=== PATIENT | female | born 1985 | race Caucasian/White ===

== ENCOUNTER 2018-02-26 15:29 | Inpatient (IN) | payer OTHER ==
[~2018-02-26] VITALS: Ht 157.5 cm; Wt 73.9 kg
[2018-03-03] MEDS ORDERED: OXYC1TAB9 PO (12:00)
[2018-03-03] MEDS ORDERED: COLACE100 MG PO (12:00)
== END 2018-03-03 12:40 | disposition home or self-care (01) | DRG 743 ==
LOC: O/R 03-01 05:50 → SURH 03-01 07:00 → OB/GYN 03-01 10:29 → SURH 03-01 15:29 → OB/GYN 03-03 12:40
PROVIDERS: Obstetrics & Gynecology
PROC: 0UB90ZZ Excision of Uterus, Open Approach (ICD-10-PCS; principal; 2018-03-01 07:00)
DX: D25.2 Subserosal leiomyoma of uterus (principal)

== ENCOUNTER 2021-09-19 07:14 | Emergency (ER) | payer OTHER ==
[~2021-09-19] VITALS: Ht 157.5 cm; Wt 68.9 kg
[~2021-09-19 07:14] MED LIST: COLACE100 MG PO; OXYC1TAB9 PO
[2021-09-19] MEDS ORDERED: FOLIC ACID0.8 M1 PO (07:21)
[2021-09-19] MEDS ORDERED: PRENATAL + DHA1 EAC1 PO (07:21)
== END 2021-09-19 12:30 | disposition home or self-care (01) ==
LOC: ER 07:14
DX: O26.892 Other specified pregnancy related conditions, second trimester (principal); Z3A.15 15 weeks gestation of pregnancy; R10.2 Pelvic and perineal pain

== ENCOUNTER 2021-10-27 07:57 | Outpatient (CLI) | payer OTHER ==
[~2021-10-27 07:57] MED LIST changes: +FOLIC ACID0.8 M1 PO; +PRENATAL + DHA1 EAC1 PO
== END 2021-10-27 09:09 | disposition home or self-care (01) ==
LOC: PRENATAL 07:57
PROVIDERS: ATTEND Obstetrics & Gynecology Maternal & Fetal Medicine
DX: O35.0XX0 Maternal care for (suspected) central nervous system malformation in fetus, not applicable or unspecified (principal); O35.3XX0 Maternal care for (suspected) damage to fetus from viral disease in mother, not applicable or unspecified; O28.1 Abnormal biochemical finding on antenatal screening of mother; O99.340 Other mental disorders complicating pregnancy, unspecified trimester; O34.219 Maternal care for unspecified type scar from previous cesarean delivery

== ENCOUNTER 2022-02-21 08:59 | Inpatient (IN) | payer OTHER ==
[~2022-02-21] VITALS: Ht 157.5 cm; Wt 85.3 kg
[2022-02-21] MEDS ORDERED: SERTRALINE HCL25 MG (14:39)
[2022-02-24] MEDS ORDERED: AMOX1TAB5 PO (08:22)
[2022-02-24] MEDS ORDERED: PERCOCET 5-3251 EACH PO (08:22)
== END 2022-02-24 14:46 | disposition home or self-care (01) | DRG 787 ==
LOC: LDR 08:59 → SURG-SUITE 13:48
PROVIDERS: Surgery; ADMIT Specialist; ATTEND Specialist
PROC: 0DNW0ZZ Release Peritoneum, Open Approach (ICD-10-PCS; 2022-02-21)
PROC: 0DQE0ZZ Repair Large Intestine, Open Approach (ICD-10-PCS; 2022-02-21)
PROC: 4A1HXCZ Monitoring of Products of Conception, Cardiac Rate, External Approach (ICD-10-PCS; 2022-02-21)
PROC: 10D00Z1 Extraction of Products of Conception, Low, Open Approach (ICD-10-PCS; principal; 2022-02-21 13:00)
PROC: 0UB90ZZ Excision of Uterus, Open Approach (ICD-10-PCS; 2022-02-21 13:00)
DX: O34.29 Maternal care due to uterine scar from other previous surgery (principal); O99.113 Other diseases of the blood and blood-forming organs and certain disorders involving the immune mechanism complicating pregnancy, third trimester; D68.0 Von Willebrand disease; K91.71 Accidental puncture and laceration of a digestive system organ or structure during a digestive system procedure; O75.89 Other specified complications of labor and delivery; O36.63X0 Maternal care for excessive fetal growth, third trimester, not applicable or unspecified; O34.13 Maternal care for benign tumor of corpus uteri, third trimester; D25.9 Leiomyoma of uterus, unspecified; O13.3 Gestational [pregnancy-induced] hypertension without significant proteinuria, third trimester; O24.410 Gestational diabetes mellitus in pregnancy, diet controlled; O99.891 Other specified diseases and conditions complicating pregnancy; N73.6 Female pelvic peritoneal adhesions (postinfective); Z3A.37 37 weeks gestation of pregnancy; Z37.0 Single live birth; Z20.822 Contact with and (suspected) exposure to COVID-19